=== PATIENT | female | born 2000 | race African-American/Black ===

== ENCOUNTER 2024-12-25 05:22 | Emergency (ER) | payer OTHER ==
[2024-12-25 05:28] VITALS: RESP 18; TEMP 97.7; BMI 30.7
[2024-12-25] MEDS ORDERED: ONDANSETRON 4 MG/2 ML VIAL ONE (06:01)
[2024-12-25] MEDS: LACTATED RINGERS SOLUTION 1000 ML INFUS.BAG IV ONE (06:13)
[2024-12-25] MEDS: ONDANSETRON 4 MG/2 ML VIAL IVPB ONE (06:13)
[2024-12-25 06:36] LABS: ABSOLUTE IMMATURE GRANULOCYTES 0.02 x10^3/uL (0.0-0.031); BASOPHILS # 0.03 x10^3/uL (0.01-0.08); EOSINOPHIL % 0.4 % (0.7-5.8); EOSINOPHILS # 0.03 x10^3/uL (0.04-0.36); INR 1.03 (0.83-1.09); MCHC 32.1 g/dl (32.2-35.5); MEAN CELL VOLUME 87.3 fl (79.4-94.8); MEAN PLT VOLUME 9.4 fl (9.4-12.3); MONOCYTE # 0.51 x10^3/uL (0.24-0.86); MONOCYTE % 6.4 % (4.7-12.5); PROTHROMBIN TIME (PATIENT) 11.2 SEC (9.7-13.0); RDW 12.2 % (12.1-16.5)
[2024-12-25 06:39] LABS: ACTIVATED PTT 31.1 SECONDS (25.2-36.5)
[2024-12-25 06:54] LABS: CO2 29.0 mmol/L (21-32); GLUCOSE,RANDOM 96.0 mg/dL (74-106)
[2024-12-25 06:57] LABS: CREATININE 0.7 mg/dL (0.55-1.3); SGOT/AST 11.0 U/L (15-37); SGPT/ALT 19.0 U/L (13-61)
[2024-12-25 06:58] LABS: TOT PROT 7.2 g/dl (6.4-8.2)
[2024-12-25 07:00] LABS: ALK PHOS 59.0 U/L (45-117)
[2024-12-25] MEDS ORDERED: ACETAMINOPHEN INJECTION 100 ML ONE (08:05)
[2024-12-25] MEDS: ACETAMINOPHEN 1000 MG/100 ML BAG IVPB ONE (08:06)
[2024-12-25 08:30] LABS: HCG,QUALITATIVE URINE Negative
[2024-12-25 09:26] LABS: URINE APPEARANCE CLEAR; URINE BILIRUBIN NEGATIVE (NEGATIVE); URINE COLOR YELLOW; URINE GLUCOSE (UA) NEGATIVE (NEGATIVE); URINE KETONE NEGATIVE (NEGATIVE); URINE LEUK ESTERASE NEGATIVE (NEGATIVE); URINE NITRITE NEGATIVE (NEGATIVE); URINE PROTEIN NEGATIVE (NEGATIVE); URINE UROBILINOGEN 0.2 mg/dL (0.2-1.0)
[2024-12-25 12:01] LABS: HCV DIAGNOSTIC IN-HOUSE W/RFLX NON-REACTIVE (NONREACTIVE)
[2024-12-25 12:58] VITALS: BP 100/68; PULSE 54
[2024-12-25 22:38] LABS: HIV INTERPRETATION NEGATIVE (NEGATIVE)
== END 2024-12-25 11:37 | disposition home or self-care (01) ==
LOC: JER 05:22
PROC: 3E033NZ Introduction of Analgesics, Hypnotics, Sedatives into Peripheral Vein, Percutaneous Approach (ICD-10-PCS; principal; 2024-12-25)
PROC: 3E033GC Introduction of Other Therapeutic Substance into Peripheral Vein, Percutaneous Approach (ICD-10-PCS; 2024-12-25)
DX: R10.33 Periumbilical pain (principal); R10.31 Right lower quadrant pain; R10.32 Left lower quadrant pain; R11.2 Nausea with vomiting, unspecified; R19.7 Diarrhea, unspecified; R30.0 Dysuria
CPT/HCPCS: 36415; 80053; 81003; 83690; 83735; 84703; 85025; 85610; 85730; 86803; 87086; 87389; 99284-25